=== PATIENT | female | born 1965 | race Caucasian/White ===

== ENCOUNTER 2017-08-06 03:43 | Emergency (ER) | payer BC ==
[~2017-08-06] VITALS: Ht 157.5 cm; Wt 155.6 kg
[~2017-08-06 03:43] MED LIST: BIOTENE PO; CIPRO PO; Ecotrin PO; FLAX SEED PO; MOTRIN600 MG PO; NAPROSYN500 MG PO; NORCO 5/3251 TABLET PO; PANTOPRAZOLE SO40 MG PO; TYLENOL REGULA325 MG PO; ULTRAM50 MG PO; VITAMIN D310000 UNI1 PO; VITAMIN E PO; Vitamin B-12 PO; Vitamin D PO; ZANTAC150 MG PO; ZESTRIL,PRINIVI10 MG PO
[2017-08-06 07:06] VITALS: BP 148/90
== END 2017-08-06 07:07 | disposition home or self-care (01) ==
LOC: EME 03:43
DX: M79.605 Pain in left leg (principal); M79.89 Other specified soft tissue disorders; E11.9 Type 2 diabetes mellitus without complications; I10 Essential (primary) hypertension
CPT/HCPCS: 93971; 99281; 99285